=== PATIENT | male | born 1960 | race Caucasian/White ===

== ENCOUNTER 2017-09-21 00:05 | Inpatient (IN) | payer OTHER ==
[~2017-09-21] VITALS: Ht 175.3 cm; Wt 103.9 kg
[2017-09-21] VITALS (9 sets, daily range): BP systolic 95–138; BP diastolic 56–78
--- NOTE | ~2017-09-21 | EKG ---
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1960 Requested By: Edmund Armijo Order Number: [id number] MD: Jose Evans Measurements Intervals [place] Rate: 132 P: 18 DC: 140 QRS: -21 QRSD: 98 T: 25 QT: 300 QTc: 445 Interpretive Statements Sinus tachycardia Multiple premature complexes, vent & supraven Abnormal R-wave progression, late transition Inferior myocardial infarction of indeterminate age Borderline T abnormalities No previous ECG available for comparison Electronically Signed On 09-21-2017 15:57:46 CAN REPAIRER by Jose Evans [email or web address] <ELECTRONICALLY SIGNED> By: Jose Evans MD, [facility] 09/21/17 1557 0027 0027 Jose Evans MD, [facility] /EPI
--- NOTE | ~2017-09-21 | EKG ---
[address] [place] [address] ELECTROCARDIOGRAM REPORT Name: AURA CUNNINGHAM Room #: 208-P [facility] IN ..#: [id number] Admission: 09/21/17 Attend Phys: Jr Milton MD Discharge: Date of : 56 Report #: [id number] THIS REPORT FOR: //name// [facility] ED Test Date: 2017-09-21 Test Time: 03:25:45 Pat Name: ARUA CUNNINGHAM Department: Room: 208 Gender: M Electrician Sound: Felix DENISE : 1960 Requested By: Edmund Armijo Order Number: [id number] MD: Jose Evans Measurements Intervals [place] Rate: 117 P: 18 CA: 138 QRS: -15 QRSD: 101 T: 39 QT: 303 QTc: 423 Interpretive Statements Sinus tachycardia Premature ventricular and supraventricular complexes Borderline left axis deviation Abnormal R-wave progression, late transition Nonspecific ST and T wave abnormality Possible inferior infarct, age indeterminate No previous ECG available for comparison Electronically Signed On 09-21-2017 15:59:55 INSURANCE INSTRUCTOR by Jose Evans [email or web address] <ELECTRONICALLY SIGNED> By: Jose Evans MD, [facility] 09/21/17 1559 0325 0325 Jose Evans MD, [facility] /EPI
[2017-09-21] MEDS ORDERED: COLACE100 MG PO (00:26)
[2017-09-21] MEDS ORDERED: JANUMET 50-1,01 EACH PO (00:26)
[2017-09-21] MEDS ORDERED: COUMADIN 3 MG TA3 M1 PO (00:27)
[2017-09-21] MEDS ORDERED: MELATONIN PO (00:27)
[2017-09-21] MEDS ORDERED: OMEPRAZOLE 20 M20 MG PO (00:27)
[2017-09-21] MEDS ORDERED: LIPITOR 20 MG T20 M1 PO (00:28)
[2017-09-21] MEDS ORDERED: LORATIDINE 10 M10 M1 PO (00:28)
[2017-09-21] MEDS ORDERED: FLOMAX0.4 MG PO (00:29)
[2017-09-21] MEDS ORDERED: MULTIVITAMINS1 EACH PO (00:29)
[2017-09-21] MEDS ORDERED: LISINOPRIL20 MG PO (00:29)
[2017-09-21 00:47] LABS: ABSOLUTE NEUTROPHILS 10.7 thou/uL (1.4-8.2); BASOPHILS 0.6 % (0.0-2.0); EOSINOPHILS 0.3 % (0.0-3.0); HEMATOCRIT 35.7 % (42.0-52.0); HEMOGLOBIN 11.7 gm/dL (14.0-18.0); LYMPHOCYTES 9.5 % (24.0-44.0); MCH 28.5 pg (26.0-34.0); MCHC 32.8 g/dL (28.0-37.0); MCV 86.8 fL (80.0-100.0); MONOCYTES 5.8 % (1.0-8.0); PLATELET COUNT 218 thou/uL (150-400); POLYS 83.8 % (36.0-66.0); RBC 4.11 mil/uL (4.50-6.00); RDW 16.8 % (10.5-14.5); WBC 12.8 thou/uL (4.0-11.0)
[2017-09-21 00:48] LABS: CALCIUM 9.1 mg/dL (8.5-10.1); CREATININE 0.8 mg/dL (0.7-1.3)
[2017-09-21 01:04] LABS: URINE BILIRUBIN NEGATIVE (Negative); URINE BLOOD 1+ (Negative); URINE CLARITY SL CLOUDY; URINE COLOR YELLOW; URINE GLUCOSE-RANDOM* NEGATIVE (Negative); URINE KETONES NEGATIVE (Negative); URINE NITRITE-REFLEX NEGATIVE (Negative); URINE PROTEIN (DIPSTICK) TRACE (Negative); URINE SPECIFIC GRAVITY 1.015 (1.005-1.035); URINE UROBILINOGEN 0.2 E.U./dl (0.2-1.0)
[2017-09-21 01:08] LABS: URINE LEUKOCYTES-REFLEX 3+ (Negative)
[2017-09-21 01:25] LABS: CASTS None Seen /LPF (None Seen); MUCUS None Seen strn/LPF (None Seen); SQUAMOUS None Seen /LPF (0-3); URINE WBC-REFLEX >25 Many /HPF (0-5)
[2017-09-21 01:26] LABS: BACTERIA-REFLEX 1-9 Few /HPF (None Seen); CRYSTALS None Seen /LPF (None Seen); URINE RBC 0-2 Rare /HPF (0-2)
[2017-09-21 02:23] LABS: INR 1.2
[2017-09-22 03:44] LABS: INR 1.2
[2017-09-22 04:40] VITALS: BP 124/63
[2017-09-22 08:08] VITALS: BP 119/76
[2017-09-22 08:25] LABS: ABSOLUTE NEUTROPHILS 5.8 thou/uL (1.4-8.2); BASOPHILS 0.5 % (0.0-2.0); EOSINOPHILS 0.4 % (0.0-3.0); HEMATOCRIT 31.1 % (42.0-52.0); HEMOGLOBIN 10.1 gm/dL (14.0-18.0); LYMPHOCYTES 17.4 % (24.0-44.0); MCH 28.7 pg (26.0-34.0); MCHC 32.5 g/dL (28.0-37.0); MCV 88.3 fL (80.0-100.0); MONOCYTES 7.7 % (1.0-8.0); PLATELET COUNT 168 thou/uL (150-400); RBC 3.52 mil/uL (4.50-6.00); RDW 17.2 % (10.5-14.5); WBC 7.9 thou/uL (4.0-11.0)
[2017-09-22 08:29] LABS: CALCIUM 8.8 mg/dL (8.5-10.1); CREATININE 0.6 mg/dL (0.7-1.3); POTASSIUM 4.1 mmol/L (3.5-5.1)
[2017-09-22 09:34] VITALS: BP 116/78
[2017-09-22 11:35] VITALS: BP 128/73
[2017-09-22 16:16] VITALS: BP 103/75
[2017-09-22 19:24] VITALS: BP 124/54
[2017-09-23 04:10] LABS: INR 1.2; PROTIME 11.9 Seconds (9.3-11.4)
[2017-09-23 06:15] VITALS: BP 124/71
[2017-09-23 08:00] VITALS: BP 124/82
[2017-09-23 11:09] VITALS: BP 133/80
[2017-09-23] MEDS ORDERED: LEVAQUIN 750 M750 MG PO (12:49)
[2017-09-23] MEDS ORDERED: ELIQUIS5 MG PO (12:50)
[2017-09-23 13:23] VITALS: BP 116/78
== END 2017-09-23 14:45 | disposition home health service (06) | DRG 872 ==
LOC: ER 00:05 → EROBS 01:44 → 2N 01:44 → ENTRNSPT 09-23 13:47 → EDTRNSPTSTS 09-23 13:50 → 2N 09-23 14:45
PROVIDERS: Emergency Medicine; Hospitalist; Nurse Practitioner Acute Care
DX: A41.9 Sepsis, unspecified organism (principal); N39.0 Urinary tract infection, site not specified; K21.9 Gastro-esophageal reflux disease without esophagitis; E11.9 Type 2 diabetes mellitus without complications; R65.20 Severe sepsis without septic shock; Z86.711 Personal history of pulmonary embolism; Z87.891 Personal history of nicotine dependence; Z79.899 Other long term (current) drug therapy
CPT/HCPCS: 10081

== ENCOUNTER → 2018-09-15 | Outpatient (CLI) | payer OTHER ==
[~2018-09-15] MED LIST: COLACE100 MG PO; COUMADIN 3 MG TA3 M1 PO; ELIQUIS5 MG PO; FLOMAX0.4 MG PO; JANUMET 50-1,01 EACH PO; LEVAQUIN 750 M750 MG PO; LIPITOR 20 MG T20 M1 PO; LISINOPRIL20 MG PO; LORATIDINE 10 M10 M1 PO; MELATONIN PO; MULTIVITAMINS1 EACH PO; OMEPRAZOLE 20 M20 MG PO
== END ==
LOC: ULTRA 10:50
DX: Z86.718 Personal history of other venous thrombosis and embolism (principal)

== ENCOUNTER → 2019-02-07 | Outpatient (CLI) | payer OTHER ==
[2019-02-07 15:20] LABS: CREATININE 0.8 mg/dL (0.7-1.3)
== END ==
LOC: CAT 14:44
PROVIDERS: Family Medicine
DX: K80.20 Calculus of gallbladder without cholecystitis without obstruction (principal); K44.9 Diaphragmatic hernia without obstruction or gangrene; N40.0 Benign prostatic hyperplasia without lower urinary tract symptoms; K42.9 Umbilical hernia without obstruction or gangrene; N32.3 Diverticulum of bladder; M43.8X4 Other specified deforming dorsopathies, thoracic region; M43.27 Fusion of spine, lumbosacral region; Z98.1 Arthrodesis status

== ENCOUNTER → 2020-05-19 | Outpatient (CLI) | payer OTHER | LOC: LAB 12:49 | PROVIDERS: ATTEND Family Medicine | DX: Z20.828 Contact with and (suspected) exposure to other viral communicable diseases (principal) ==

== ENCOUNTER 2021-01-07 08:25 | Day surgery (SDC) | payer OTHER ==
[~2021-01-07] VITALS: Ht 175.3 cm; Wt 111.1 kg
[~2021-01-07 08:25] MED LIST changes: +OMEGA-3 FISH1200 MG PO; +OMEPRAZOLE 20 M20 M1 PO
--- NOTE | 2021-01-07 11:37 | EKG ---
[address] [address] ELECTROCARDIOGRAM REPORT Name: AURA CUNNINGHAM Alexandru Room #: 150-5 [facility].#: [id number] Admission: 01/07/21 Attend Phys: Roberto Jacobsen MD Discharge: Date of : 56 Report #: [id number] 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1960 Requested By: Roberto Jacobsen Order Number: [id number] : Emeterio Cisneros Measurements Intervals [place] Rate: 59 P: -10 CA: 178 QRS: -18 QRSD: 106 T: 7 QT: 402 QTc: 399 Interpretive Statements Sinus rhythm Borderline left axis deviation Compared to ECG 09/21/2017 03:25:45 Sinus tachycardia no longer present Ventricular premature complex(es) no longer present ST (T wave) deviation no longer present Myocardial infarct finding no longer present Electronically Signed On 01-07-2021 11:37:20 CDT by Emeterio Cisneros [email or web address] <ELECTRONICALLY SIGNED> By: Emeterio Cisneros MD, FAC 01/07/21 1137 1014 1014 Emeterio Cisneros MD, [facility] /EPI
[2021-01-07] MEDS ORDERED: HYDROCODON-ACE1 EAC7 PO (12:00)
[2021-01-07 12:59] VITALS: BP 113/75
--- NOTE | 2021-01-12 18:06 | PATH ---
[facility] [address] [place] [address] PATHOLOGY RPT PROCEDURE Name: OCTAVIOAURA A Room #: DEP [facility] M.R.#: [id number] Admission: 01/07/21 Date of : 56 Discharge: 01/07/21 Report #: [id number] Path Case #: [id number] [facility] Accession Number: [id number] . 01 Material submitted: . hernia - UMBILICAL HERNIA SAC. Modifiers: UMBILICAL . 01 Clinical history: . HERNIA REPAIR, UMBILICAL UMBILICAL HERNIA, SPIGELIAN HERNIA . 02 Diagnosis: Soft tissue, umbilical hernia sac, excision: - Fibroadipose tissue partially covered by mesothelium consistent with hernia sac. - There is no evidence of malignancy. (SCA:murali; 01/09/2021) QMS 01/09/2021 1306 Local . 02 Electronically signed: . Helder Martins DO, Pathologist NPI- [id number] . 01 Gross description: . The specimen is received in formalin, labeled "Aura Mendosa, umbilical hernia sac". Received is a segment of weiss-brown fibromembranous tissue measuring 3.0 x 2.1 x 1.3 cm in greatest dimensions. No distinct nodules or lesions are noted grossly. The specimen is submitted representatively in cassette A1. (CAA; 01/08/2021) QA/[facility] 01/08/2021 1041 Local . 02 Pathologist provided ICD-10: K42.9 . 02 CPT . 786164 Specimen Comment: A courtesy copy of this report has been sent to [phone], [phone] Specimen Comment: [phone] Specimen Comment: Report sent to / DR WOODARD Specimen Comment: A duplicate report has been generated due to demographic updates. Performed at: [facility] [address] [place] [id number] MD Omar Sharma MD Phone: [phone] [place] [address] PATHOLOGY RPT PROCEDURE Name: AURA MENDOSA Room #: DEP [facility] Tuan#: [id number] Admission: 01/07/21 Date of : 56 Discharge: 01/07/21 Report #: [id number] Path Case #: [id number] Performed at: 02 [facility] [address] [id number] MD Yaya Villanueva MD Phone: [phone]
--- NOTE | 2021-01-16 12:20 | O ---
[facility] [place] [address] OPERATIVE REPORT Name: OCTAVIOAURA VALDIVIA Alexandru Room #: DEP [facility].#: [id number] Admission: 01/07/21 Attend Phys: Roberto Jacobsen MD Discharge: 01/07/21 Date of : 56 Report #: [id number] THIS REPORT FOR: cc: Yovani Lenz James A. DO Chu, Peter Y. MD ~ DOC #: [id number] Roberto Jacobsen MD DATE OF SERVICE: 01/07/2021 PREOPERATIVE DIAGNOSES: Umbilical hernia, right abdominal pain. POSTOPERATIVE DIAGNOSIS: Umbilical hernia with incarcerated fat. PROCEDURES PERFORMED: 1. Diagnostic laparoscopy. 2. Repair of incarcerated umbilical hernia with mesh. SURGEON: Roberto Jacobsen M.D. COMPLICATIONS: None. ESTIMATED BLOOD LOSS: 5 mL. FINDINGS: The area of his right lower pain does not show any evidence of a spigelian hernia. The patient had an incarcerated umbilical hernia with omentum stuck in that, I believe the pain is from the omentum pulling towards the right side. DESCRIPTION OF PROCEDURE: The patient under general anesthesia, abdomen was prepped and draped in sterile fashion. IV antibiotic was administered. A timeout was performed. Curvilinear incision was made infraumbilically. The patient has a rather large umbilical hernia. The hernia sac was freed from the overlying skin. A cm area of the skin was entered in the process of taking the sac of the hernia sac as it was really stuck to it. At the end of the procedure, this was repaired with 5-0 PDS dermally from behind. The hernia sac was isolated. The hernia sac was opened. There is omental fat contained within this and this was actually stuck to the hernia sac. This was fairly difficult to reduce because of the fascia defect was kind of tight on it. I did enlarge the fascial defect on the left side and this allowed the omental fat that was freed up to be reduced. A balloon trocar was then placed through the peritoneal opening into the peritoneal cavity, this was held with inflating the balloon. Laparoscope was then placed to look at the right lower quadrant or right abdomen where he was hurting and there is no weakness here to suggest a hernia in the ventral wall or a spigelian hernia. Diagnostic laparoscopy was then terminated. The hernia sac was closed with 4-0 PDS in a running fashion. Cautery was used [address] [address] OPERATIVE REPORT Name: AURA CUNNINGHAM Room #: DEP [facility]..#: [id number] Admission: 01/07/21 Attend Phys: Roberto Jacobsen MD Discharge: 01/07/21 Date of : 56 Report #: [id number] to seal the small vessel along the hernia sac. The ligated hernia sac was then easily reduced into the properitoneal space. Properitoneal dissection was then carried out. This properitoneal space was opened up without difficulty. The fascia defect at this point is about 2 cm with a moderately thin wall. A medium-sized Ventralex patch was then placed. The Ventralex was moistened and then placed in the properitoneal space. The mesh was opened up completely. The fascia was then closed with 0 PDS in horizontal mattress fashion and this incorporated the strap to the fascial closure. The excess strap tissue was then trimmed at the fascial level. The umbilicus was repair as described and the skin was then tacked down to the fascia with 4-0 PDS. Skin was closed with 5-0 PDS running subcuticular fashion. Steri-Strips, 4 x 4 was used to push the skin down on the belly button. Op-Site was used for dressing. The patient tolerated the procedure well and was taken to recovery room. Roberto Jacobsen MD C/ALL <ELECTRONICALLY SIGNED> By: Roberto Jacobsen MD 01/16/21 1220 1311 1445 Roberto Jacobsen MD /nt
== END 2021-01-07 13:00 | disposition home or self-care (01) ==
LOC: OR 08:25 → TBA 08:26 → OR 09:40
PROVIDERS: ATTEND Surgery
DX: K42.0 Umbilical hernia with obstruction, without gangrene (principal); R10.31 Right lower quadrant pain; I10 Essential (primary) hypertension; E11.9 Type 2 diabetes mellitus without complications; E78.5 Hyperlipidemia, unspecified; G47.30 Sleep apnea, unspecified; K21.9 Gastro-esophageal reflux disease without esophagitis; Z98.890 Other specified postprocedural states; Z79.899 Other long term (current) drug therapy; Z98.42 Cataract extraction status, left eye; Z98.41 Cataract extraction status, right eye; Z20.822 Contact with and (suspected) exposure to COVID-19
CPT/HCPCS: 50010; 50101; 50130; 50386; 52265; 53065; 56525; 57092; 58574; 62110; 62900; 70005